=== PATIENT | female | born 1950 | race Caucasian/White ===

== ENCOUNTER 2023-06-17 19:54 | Emergency (ER) | payer MEDICARE, OTHER, SELFPAY ==
[2023-06-17 20:02] VITALS: BP 169/85
[2023-06-17 20:23] LABS: % Basophils 0.4 % (0-2); % Eosinophils 0.3 % (0-6); % Immature Granulocytes 0.4 % (0-0.5); % Lymphocytes 16.2 % (20.5-51.1); % Monocytes 6.2 % (1.7-9.3); % Neutrophils 76.5 % (42.2-75.2); Absolute Lymphocytes 1.6 10^3/uL (1.2-3.4); Absolute Monocytes 0.6 10^3/uL (0.1-0.6); Absolute Neutrophils 7.5 10^3/uL (1.4-6.5); Hemoglobin 15.1 g/dL (12.0-16.0); Mean Corp Hgb Conc. 34.3 g/dL (33.0-37.0); Mean Corpuscular Hgb 33.3 pg (27.0-31.0); Mean Corpuscular Volume 96.9 fL (81.0-99.0); Mean Platelet Volume 9.8 fL (7.4-10.4); Nucleated Red Blood Cells % 0 %; Platelet Count 230 10^3/uL (130-400); Red Blood Cell Count 4.54 10^6/uL (4.20-5.40); White Blood Cell Count 9.8 10^3/uL (4.8-10.8)
[2023-06-17 20:39] LABS: ALT (SGPT) 27 U/L (0-35); AST (SGOT) 31 U/L (14-36); Albumin 4.2 g/dl (3.5-5.0); Alkaline Phosphatase 81 U/L (38-126); Blood Urea Nitrogen 20 mg/dl (7-17); Calcium 10.1 mg/dl (8.4-10.2); Carbon Dioxide 24 mmol/L (22-30); Chloride 101 mmol/L (98-107); Glucose 141 mg/dl (70-99); Potassium 4.4 mmol/L (3.5-5.1); Sodium 136 mmol/L (135-145); Total Bilirubin 1.5 mg/dl (0.2-1.3); Total Protein 6.6 g/dl (6.3-8.2); eGFR 48.09
[2023-06-17 21:34] VITALS: BP 161/69
--- NOTE | 2023-06-17 22:03 | ED.GENMED ---
History of Present Illness
<Patricia Martinez PA-C - Last Filed: 06/18/23 01:07>
General
Chief Complaint: Dizziness
Source: patient
Exam Limitations: none
Time Seen by Provider: 06/17/23 21:27
Nursing documentation reviewed up to this point in time: agreed with
Travel History
Have you had any contact with someone who has COVID-19?: No
Do you have any symptoms of coronavirus? Fever > 100 degrees, chills, cough, shortness of breath, sore throat, loss of taste or smell, muscle aches, or headache?: No
History of Present Illness
History of Present Illness:
Patient is a 72-year-old female with history hypertension, hyperlipidemia, diabetes, vertigo presenting to the emergency department for evaluation. Patient states when she woke up she turned her head and felt a dizzy sensation. She states this
sensation is very similar to a few years ago when she was admitted for vertigo here. She reports some associated nausea and lightheadedness. Patient does deny any associated headache, neck pain, chest pain, shortness of breath, vision changes,
weakness, numbness/tingling.
Patient states that she has felt somewhat shaky and off throughout the day but the dizzy sensation has improved greatly since this morning. At this time. She states she still feels slightly lightheaded and shaky.
Patient was admitted for few days in 2021 for very similar complaint. At that time there was a extensive workup performed including CT and MRI brain and neurology consultation which showed no evidence of neurologic process. It was presumed to be
likely BPPV and patient was discharged.
Phy Exam
<Patricia Martinez PA-C - Last Filed: 06/18/23 01:07>
Physical Exam
Physical Exam:
General: No apparent distress, nontoxic appearing
Vitals: Vital signs stable, afebrile
HEENT: Atraumatic, normocephalic; pupils equal round and reactive light bilaterally, extraocular muscle intact, no vertical nystagmus, some cerumen in bilateral auditory canals, protecting airway, uvula midline
Neck: appears supple, no meningeal signs, trachea midline
CV: Regular rate and rhythm, heart sounds are no evidence of cyanosis
Resp: No evidence of respiratory distress, lungs clear bilaterally
Abd: Soft, nontender, non-distended
Extremities: No deformities, no evidence of cyanosis or edema; DP pulses palpable and equal bilaterally
Neuro: alert and oriented x 3; speech normal, sensation fully intact, strength 5 out of 5 in upper and lower extremities, normal finger-nose and [id number] test, cranial nerves II through XII intact
Psych: Normal affect
Skin: Intact, no rashes
Course
<Patricia Martinez PA-C - Last Filed: 06/18/23 01:07>
Orders/Labs/Results
Orders:
Orders
06/17/23 20:01
EKG [Electrocardiogram (*1)] Urgent
Reason for Study: Vertigo / Dizzy
EKG- Treatment ONCE
06/17/23 20:12
CBC/With Diff [Complete Blood Count/With Diff] Urgent
CMP [Comprehensive Metabolic Panel] Urgent
06/17/23 22:05
0.9% Sodium Chloride 1000 ml [Nss] 1,000 ml IV BOLUS
Abnormal Lab Results
06/17/23
20:12
MCH 33.3 H pg
(27.0-31.0)
Absolute Neuts (auto) 7.5 H 10^3/uL
(1.4-6.5)
Neutrophils % 76.5 H %
(42.2-75.2)
Lymphocytes % 16.2 L %
(20.5-51.1)
BUN 20 H mg/dl
(7-17)
Creatinine 1.2 H mg/dL
(0.6-1.0)
Glucose 141 H mg/dl
(70-99)
Total Bilirubin 1.5 H mg/dl
(0.2-1.3)
06/17/23 20:12
06/17/23 20:12
Vital Signs
Initial and Last Documented VS:
Initial Vital Signs
Temp Pulse Resp BP Pulse Ox
98.2 F 91 18 169/85 99
06/17/23 20:02 06/17/23 20:02 06/17/23 20:02 06/17/23 20:02 06/17/23 20:02
Last Documented Vital Signs
Temp Pulse Resp BP Pulse Ox
98.2 F 81 15 125/60 100
06/17/23 20:02 06/18/23 00:00 06/18/23 00:00 06/18/23 00:00 06/18/23 00:00
<Martín Garcia, - Last Filed: 06/17/23 22:15>
Orders/Labs/Results
Orders:
Orders
06/17/23 20:01
EKG [Electrocardiogram (*1)] Urgent
Reason for Study: Vertigo / Dizzy
EKG- Treatment ONCE
06/17/23 20:12
CBC/With Diff [Complete Blood Count/With Diff] Urgent
CMP [Comprehensive Metabolic Panel] Urgent
06/17/23 22:05
0.9% Sodium Chloride 1000 ml [Nss] 1,000 ml IV BOLUS
Abnormal Lab Results
06/17/23
20:12
MCH 33.3 H pg
(27.0-31.0)
Absolute Neuts (auto) 7.5 H 10^3/uL
(1.4-6.5)
Neutrophils % 76.5 H %
(42.2-75.2)
Lymphocytes % 16.2 L %
(20.5-51.1)
BUN 20 H mg/dl
(7-17)
Creatinine 1.2 H mg/dL
(0.6-1.0)
Glucose 141 H mg/dl
(70-99)
Total Bilirubin 1.5 H mg/dl
(0.2-1.3)
06/17/23 20:12
06/17/23 20:12
Vital Signs
Initial and Last Documented VS:
Initial Vital Signs
Temp Pulse Resp BP Pulse Ox
98.2 F 91 18 169/85 99
06/17/23 20:02 06/17/23 20:02 06/17/23 20:02 06/17/23 20:02 06/17/23 20:02
Last Documented Vital Signs
Temp Pulse Resp BP Pulse Ox
98.2 F 81 15 125/60 100
06/17/23 20:02 06/18/23 00:00 06/18/23 00:00 06/18/23 00:00 06/18/23 00:00
<Patricia Martinez PA-C - Last Filed: 06/18/23 01:07>
MDM/Problems Addressed
Differential Diagnosis Includes:
Not limited to: Dehydration, BPPV, hypoglycemia, doubt posterior stroke
MDM/Problems Addressed:
Patient is 70-year-old female with history of vertigo presenting for evaluation of positional lightheadedness and mild nausea. Acute onset this morning. Symptoms have mainly resolved the patient does still feel shaky and lightheaded. Patient
reports initial onset was sitting up in bed and moving head. No associated headache, chest pain, shortness of breath. Vitals are stable. Exam as above. Patient is well-appearing, no apparent distress. No vertical nystagmus noted her neurologic
exam without any focal deficits. There are no signs of ataxia. Do not suspect posterior circulation stroke. There is a somewhat positive [place]-Hallpike maneuver. Possible that this is a recurrent BPPV. Labs obtained in triage show signs of mild
elevation in creatinine and BUN suggesting some dehydration. Will give liter of IV fluids.
EKG shows normal sinus rhythm without any signs of ischemia
Into reassess patient: Patient does report feeling better following IV fluids. Work appears negative. Do not suspect emergent neurologic process. Seems to be positional and reproducible. I do feel the patient would benefit from vestibular
therapy outpatient physical therapy. Information provided to patient. She is stable for discharge with close return precautions, vestibular therapy outpatient, primary care follow-up. Patient comfortable with plan. All questions answered
Patient witnessed walking out of emergency department without any ataxia or difficulty.
Chronic conditions affecting care:
Vertigo
Acute Exacerbation and/or Progression of Chronic Illness:
Vertigo
<Patricia Martinez PA-C - Last Filed: 06/18/23 01:07>
*Pulse Oximetry
Patient hypoxic: no
*EKG
Interpreted by ED Provider?: Yes
EKG Intrepretation Date: 06/18/23
Interpretation: normal
Comparison EKG: changes noted
Heart Rate: 72
Rate: normal
Rhythm: sinus
Ischemia: no ischemia
*[employer] Interpretation
Rate: normal
Interpretation: normal
Heart Rate: 80
Rhythm: sinus
*Critical Care Note
Total Time (30-74mins, 75-104mins- exclusive of procedures): Not Applicable
Data Reviewed
Review of Other/Old Records Reveals: Labs, Records, Radiology Studies and Discharge Summary
Source: previous hospital records
ED Attending Note
<Patricia Martinez PA-C - Last Filed: 06/18/23 01:07>
-
Portions of this chart may have been created with voice recognition software.� Occasional wrong word or��sound alike� substitutions may have occurred due to the inherent limitations of voice recognition software.
<Martín Garcia DO - Last Filed: 06/17/23 22:15>
ED Attending Note
Patient seen and examined by attending physician: Yes
I performed the substantive portion of visit, reviewed & personally made and approve the management plan that is documented in note by myself or MARYSE.: Yes
I performed a history and physical exam of patient and discussed management with resident, I reviewed resident's note and agree with documented findings and plan of care.: Yes
ED Attending Note:
I evaluated the patient at bedside. The patient has at least a borderline positive [place]-Hallpike maneuver. Will plan vestibular physical therapy. She has a nonfocal neurologic examination with normal finger-nose testing. No ataxia is noted. She
had similar symptoms which were more severe until 22 and at that time had a normal MRI of the brain.
Discharge Plan
Departure
Patient Disposition: Home (Routine Discharge)
Date of Disposition: 06/18/23
Time of Disposition: 00:00
Patient with high blood pressure during this ER visit?: Yes
Condition: Good
Covid-19: Not Applicable
Discharge Problem:
Vertigo
Instructions: Vertigo (a type of dizziness)
Prescriptions:
No Action
multivitamin Tablet
1 tab PO DAILY
latanoprost 0.005 % Drops
1 drp BOTH EYES HS
spironolactone 25 mg Tablet
25 mg PO BID
escitalopram oxalate 10 mg Tablet
10 mg PO DAILY
metoprolol tartrate 25 mg Tablet
25 mg PO BID
meclizine 12.5 mg Tablet
12.5 mg PO TID PRN (Reason: dizziness ) Qty: 10 0RF
Ear Drops (carbamide peroxide) 6.5 % Drops
1 drp otic (ear) BID Qty: 20 0RF
Referrals:
Tristan Pickett MD [Active] - As needed
Clayton Diaz, [Family Provider] -
Activity Restrictions/Additional Instructions:
- Return to the emergency department with any high fever, severe headache, neck pain, persistent dizziness, vision changes, numbness/tingling, difficulty walking, fainting, severe abdominal pain, intractable nausea or vomiting, worsening current
symptoms, or any other concerns
-Is important stay well-hydrated. Eat a balanced diet. Continue to take all medications as
-As discussed�you should make appointment for vestibular physical therapy. The information has been provided for you today.
-It is importantly follow-up with your primary care provider in the next few days to ensure symptoms are improving.
Interventions
Interventions:
*Risk Screen - Suicide Last Done: 06/17/23 20:02
*General Assessment Last Done: 06/17/23 20:02
*Neglect/Abuse Screening Last Done: 06/17/23 20:02
ED- Fall Risk Assessment Last Done: 06/17/23 22:23
*ED COVID-19 Vaccine History Last Done: 06/17/23 20:02
*Nursing Disposition Last Done: 06/18/23 00:19
ED- Neurological Assessment Last Done: 06/17/23 22:23
ED- Cardiac Assessment Last Done: 06/17/23 22:23
ED Swallowing Screen Last Done: 06/17/23 22:23
Discharge Date and Time
Discharge Date/Time: 06/18/23 00:21
Print Language: ARABIC
[2023-06-17] MEDS: NSS 1000 IV (22:15)
[2023-06-17 23:00] VITALS: BP 121/101
[2023-06-18] VITALS: BP 125/60
== END 2023-06-18 00:21 | disposition home or self-care (01) ==
LOC: EMR 19:54
PROVIDERS: EMERGENCY PHYSICIAN Emergency Medicine; FAMILY PHYSICIAN Family Medicine
DX: R42 Dizziness and giddiness (principal); I10 Essential (primary) hypertension; E78.5 Hyperlipidemia, unspecified
CPT/HCPCS: 99284; 96360; 80053; 85025; 93005

== ENCOUNTER 2023-07-06 08:17 | Outpatient (RCR) | payer MEDICARE, OTHER, SELFPAY | END 2023-07-06 23:59 | disposition home or self-care (01) | LOC: RPT 08:17 | PROVIDERS: ATTENDING PHYSICIAN Orthopaedic Surgery | DX: H81.10 Benign paroxysmal vertigo, unspecified ear (principal); R42 Dizziness and giddiness; Z73.6 Limitation of activities due to disability | CPT/HCPCS: 97112; 97163 ==